=== PATIENT | female | born 2000 | race American Indian/Alaskan Native ===

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

== ENCOUNTER 2022-02-28 19:23 | Inpatient (IN) | payer BC, OTHER ==
[~2022-02-28] VITALS: Ht 162.6 cm; Wt 96.6 kg
[~2022-02-28 19:23] MED LIST changes: +CYCLOBENZAPRINE10 MG PO; +ONDANSETRON ODT8 MG PO
--- NOTE | 2022-03-01 08:11 | PR ---
[facility] [address] [facility] [place], [place] [address] Signed Progress Notes IP Datetime Report Generated by PRIMO: 03/01/2022 08:11 PROGRESS NOTES: [id number] Impression: Reassuring Heart Rate Other Impressions: minimal progress Procedures: Intrauterine Pressure Catheter; Sterile Vag Exam VITAL SIGNS: [id number] Vital Signs: Reviewed; Within Normal Limits EXAM: [id number] Dilatation: 4.0 Effacement: 95 Station: -2 Contractions: q 3 to 4 min MEMBRANES: [id number] Comments: Minimal progress. Suspect inadquate contractions. Will place IUPC and augment as needed. FETUS A: [id number] FHR Baseline: 140 Variability: Moderate 6-25bpm Accelerations: 10X10 Decelerations: None FHR Category: Category I Presentation: Vertex Comments on Fetus A: No evidence of metabolic acidosis FETUS B: [id number] Signing Physician: Emily Swain MD Copies: ~ *Electronically Signed* 03/01/22810 EMILY SWAIN MD PATIENT NAME: ANNALEE JAMES DANIEL PROGRESS NOTE DATE OF : 02 PHYSICIAN: EMILY SWAIN MD RPT #: [id number] REPORT IS CONFIDENTIAL AND NOT TO BE RELEASED WITHOUT AUTHORIZATION
--- NOTE | 2022-03-02 07:57 | PR ---
[facility] [address] [facility] [place] [address] Signed PP Progress Notes Datetime Report Generated by CPN: 03/02/2022 07:57 SUBJECTIVE: [id number] Pain: Within Normal Limits Vital Signs: [id number] Vital Signs: Reviewed; Within Normal Limits Cardiovascular: Not Done Respiratory: Not Done Abdomen/Uterus: Abnormal Lochia: Normal Vulva/Perineum: Not Done Breasts: Not Done CVA Tenderness: Not Done Extremities: Normal Incision: Not Applicable Progress: Normal Exam Comments: Fundus firm, NT @ U-2. H/H 10.1/31.4, WBC 16.8, plat 219k IMPRESSION/PLAN/PROCEDURES: [id number] Impression: Normal Progression Plan: Continue Present Management Procedures: None Progress Notes: Doing well. Probable D/C tomorrow if continues to do well. Signing Physician: Emily Swain MD Copies: ~ *Electronically Signed* 03/02/22 0757 EMILY SWAIN MD PATIENT NAME: ANNALEE JAMES PROGRESS NOTE DATE OF : 02 PHYSICIAN: EMILY SWAIN MD RPT #: [id number] REPORT IS CONFIDENTIAL AND NOT TO BE RELEASED WITHOUT AUTHORIZATION
--- NOTE | 2022-03-03 08:37 | PR ---
[facility] [address] [facility] [place] [address] Signed PP Progress Notes Datetime Report Generated by CPN: 03/03/2022 08:37 SUBJECTIVE: [id number] Pain: Within Normal Limits Vital Signs: [id number] Vital Signs: Reviewed; Within Normal Limits Cardiovascular: Not Done Respiratory: Not Done Abdomen/Uterus: Abnormal Lochia: Normal Vulva/Perineum: Not Done Breasts: Not Done CVA Tenderness: Not Done Extremities: Normal Incision: Not Applicable Progress: Normal Exam Comments: Fundus firm, NT @ U-2 IMPRESSION/PLAN/PROCEDURES: [id number] Impression: Normal Progression Plan: Discharge Procedures: None Progress Notes: Doing well. She is ready for D/C. Signing Physician: Emily Swain MD Copies: ~ *Electronically Signed* 03/03/22 0837 EMILY SWAIN MD PATIENT NAME: ANNALEE JAMES PROGRESS NOTE DATE OF : 02 PHYSICIAN: EMILY SWAIN MD RPT #: [id number] REPORT IS CONFIDENTIAL AND NOT TO BE RELEASED WITHOUT AUTHORIZATION
== END 2022-03-03 11:55 | disposition home or self-care (01) | DRG 807 ==
LOC: FBCO 19:23 → FBC 20:14
PROVIDERS: ADMIT Obstetrics & Gynecology; ATTEND Obstetrics & Gynecology
PROC: 10E0XZZ Delivery of Products of Conception, External Approach (ICD-10-PCS; principal; 2022-03-01)
PROC: 0KQM0ZZ Repair Perineum Muscle, Open Approach (ICD-10-PCS; 2022-03-01)
PROC: 10907ZC Drainage of Amniotic Fluid, Therapeutic from Products of Conception, Via Natural or Artificial Opening (ICD-10-PCS; 2022-03-01)
PROC: 00HU33Z Insertion of Infusion Device into Spinal Canal, Percutaneous Approach (ICD-10-PCS; 2022-03-01)
PROC: 3E0R3BZ Introduction of Anesthetic Agent into Spinal Canal, Percutaneous Approach (ICD-10-PCS; 2022-03-01)
PROC: 10H07YZ Insertion of Other Device into Products of Conception, Via Natural or Artificial Opening (ICD-10-PCS; 2022-03-01)
DX: O70.1 Second degree perineal laceration during delivery (principal); Z37.0 Single live birth; Z3A.39 39 weeks gestation of pregnancy; Z67.10 Type A blood, Rh positive; Z20.822 Contact with and (suspected) exposure to COVID-19
CPT/HCPCS: 36415; 85027; 86850; 86900; 86901; 87502; A9270; C9803; G0378; J2001; J2270; J2550; J2590; J2795; J3010; J7121; U0003

== ENCOUNTER 2023-10-07 05:17 | Emergency (ER) | payer BC, OTHER ==
[~2023-10-07] VITALS: Ht 154.9 cm; Wt 93.0 kg
[~2023-10-07 05:17] MED LIST changes: +REGLAN10 MG PO; +SERTRALINE HCL100 MG PO
[2023-10-07] MEDS ORDERED: RETIN-A20 G1 (05:28)
[2023-10-07 06:30] VITALS: BP 115/79
[2023-10-07] MEDS ORDERED: TRAMADOL HCL50 MG PO (06:37)
[2023-10-07] MEDS ORDERED: AMOX TR-K CLV1 EAC1 PO (06:37)
== END 2023-10-07 06:54 | disposition home or self-care (01) ==
LOC: ED 05:17
DX: S02.2XXA Fracture of nasal bones, initial encounter for closed fracture (principal); S01.01XA Laceration without foreign body of scalp, initial encounter; S50.11XA Contusion of right forearm, initial encounter; S60.512A Abrasion of left hand, initial encounter; S60.511A Abrasion of right hand, initial encounter; Z91.013 Allergy to seafood; Z79.899 Other long term (current) drug therapy; Y04.2XXA Assault by strike against or bumped into by another person, initial encounter
CPT/HCPCS: 70450; 70486; 73130; 99284-25; A9270

== ENCOUNTER 2024-08-13 21:21 | Emergency (ER) | payer BC, OTHER ==
[~2024-08-13] VITALS: Ht 162.6 cm; Wt 96.0 kg
[~2024-08-13 21:21] MED LIST changes: +AMOX TR-K CLV1 EAC1 PO; +RETIN-A20 G1; +TRAMADOL HCL50 MG PO
[2024-08-13] MEDS ORDERED: MORPHINE SULFATE 4 MG/ML VIAL IV ONE (22:45)
[2024-08-13] MEDS ORDERED: SODIUM CHLORIDE 0.9% 1,000 ML IV ONE (22:45)
[2024-08-13] MEDS ORDERED: ondansetron HCL 4 MG/2 ML VIAL IV ONE (22:45)
[2024-08-13 22:46] LABS: BILIRUBIN, URINE NEGATIVE (negative); BLOOD/HGB, URINE NEGATIVE (Negative); KETONE, URINE NEGATIVE (Negative); LEUK ESTERASE, URINE NEGATIVE (negative); NITRITE, URINE NEGATIVE (negative); PH, URINE 5.5 (5-7)
[2024-08-13 22:57] LABS: BASOPHILS 0.9 % (0-2); EOSINOPHILS 1.3 % (0-6); HEMATOCRIT 37.3 % (35.0-50.0); HEMOGLOBIN 11.9 g/dL (12.0-18.0); LYMPHOCYTES 21.4 % (24-44); MCH 25.7 (27-36); MCHC 31.9 g/dl (30-36); MCV 80.7 fl (81-99); MONOCYTES 7.8 % (0-12); NEUTROPHILS 68.6 % (39-80); PLATELET COUNT 380 K/uL (140-440); RBC 4.62 M/ul (4.3-5.7); RDW 16.2 (10.5-15.0)
[2024-08-13 23:10] LABS: ALBUMIN 3.5 g/dL (3.4-5.0); ALBUMIN/GLOBULIN RATIO 0.88 (1.1-2.4); ANION GAP 13.7 (7-21); BILIRUBIN, TOTAL 0.2 ng/dL (0.2-1.0); BUN/CREATININE RATIO 12.04 (6.0-28.6); CALCIUM 8.9 mg/dL (8.5-10.1); CREATININE, SERUM 0.83 mg/dL (0.55-1.02); POTASSIUM 3.7 mmol/L (3.5-5.1); PROTEIN, TOTAL 7.5 g/dL (6.4-8.2)
[2024-08-14] MEDS ORDERED: HYDROCODON-ACE1 EA10 PO (00:05)
[2024-08-14] MEDS ORDERED: ONDANSETRON 4 MG HOME.PACK SL ONE (00:15)
[2024-08-14] MEDS ORDERED: HYDROCODONE BIT/ACETAMINOPHEN 5/325 MG 1 TAB HOME.PACK PO ONE (00:15)
[2024-08-14 00:26] VITALS: BP 118/72
== END 2024-08-14 00:28 | disposition home or self-care (01) ==
LOC: ED 21:21
PROVIDERS: Family Medicine
DX: K80.50 Calculus of bile duct without cholangitis or cholecystitis without obstruction (principal); Z91.013 Allergy to seafood; Z79.899 Other long term (current) drug therapy
CPT/HCPCS: 36415; 76705; 80053; 81003; 83690; 84703; 85025; 96374; 96375; 99284-25; A9270; J2270; J2405; J7030

== ENCOUNTER 2024-11-03 16:50 | Emergency (ER) | payer BC, OTHER ==
[~2024-11-03] VITALS: Ht 162.6 cm; Wt 94.3 kg
[~2024-11-03 16:50] MED LIST changes: +HYDROCODON-ACE1 EA10 PO
[2024-11-03 18:26] LABS: BILIRUBIN, URINE NEGATIVE (negative); BLOOD/HGB, URINE NEGATIVE (Negative); KETONE, URINE NEGATIVE (Negative); LEUK ESTERASE, URINE NEGATIVE (negative); NITRITE, URINE NEGATIVE (negative)
[2024-11-03 18:39] LABS: CRYSTALS, URINE NONE SEEN (0-1+); EPITHELIAL CELLS, URINE SQUAMOUS 2+ /lpf (0-1+)
[2024-11-03 18:40] LABS: BACTERIA, URINE 1+ /hpf (negative); CASTS, URINE NONE SEEN \\lpf; COLLECTION TYPE, URINE CLEAN CATCH; REFLEX CULTURE, URINE No (No)
[2024-11-03 19:50] LABS: BASOPHILS 0.5 % (0-2); EOSINOPHILS 1.9 % (0-6); HEMATOCRIT 37.5 % (35.0-50.0); HEMOGLOBIN 11.9 g/dL (12.0-18.0); LYMPHOCYTES 17.5 % (24-44); MCH 25.8 (27-36); MCHC 31.8 g/dl (30-36); MCV 81.1 fl (81-99); MONOCYTES 9.5 % (0-12); NEUTROPHILS 70.6 % (39-80); PLATELET COUNT 295 K/uL (140-440); RBC 4.62 M/ul (4.3-5.7); RDW 15.9 (10.5-15.0)
[2024-11-03 20:09] LABS: ALBUMIN 3.5 g/dL (3.4-5.0); ANION GAP 12.8 (7-21); BILIRUBIN, TOTAL 0.1 ng/dL (0.2-1.0); BUN/CREATININE RATIO 11.42 (6.0-28.6); CREATININE, SERUM 0.7 mg/dL (0.55-1.02); POTASSIUM 3.8 mmol/L (3.5-5.1)
[2024-11-03] MEDS ORDERED: ondansetron HCL 4 MG/2 ML VIAL IV ONE (21:45)
[2024-11-03] MEDS ORDERED: HYDROCODONE BIT/ACETAMINOPHEN 5/325 MG 1 TAB HOME.PACK PO ONE (22:30)
[2024-11-03 22:41] VITALS: BP 129/76
== END 2024-11-03 22:42 | disposition home or self-care (01) ==
LOC: ED 16:50
PROVIDERS: Emergency Medicine
DX: S39.81XA Other specified injuries of abdomen, initial encounter (principal); W22.8XXA Striking against or struck by other objects, initial encounter; Z91.013 Allergy to seafood
CPT/HCPCS: 36415; 74177; 80053; 81001; 84703; 85025; 99284-25; A9270; J2405

== ENCOUNTER 2025-03-06 18:01 | Emergency (ER) | payer OTHER ==
[~2025-03-06] VITALS: Ht 162.6 cm; Wt 85.0 kg
[2025-03-06 21:42] VITALS: BP 131/83
== END 2025-03-06 21:43 | disposition home or self-care (01) ==
LOC: ED 18:01
DX: N63.0 Unspecified lump in unspecified breast (principal); N64.4 Mastodynia; Z91.013 Allergy to seafood; Z88.8 Allergy status to other drugs, medicaments and biological substances
CPT/HCPCS: 76642; 99283

== ENCOUNTER 2025-03-19 06:00 | Day surgery (SDC) | payer OTHER ==
[2025-03-05 15:27] VITALS: BP 111/59
[~2025-03-19] VITALS: Ht 162.6 cm; Wt 85.9 kg
--- NOTE | ~2025-03-19 | OR ---
[facility] [address] [place], [place] [address] Draft DATE OF OPERATION: 03/19/2025 SURGEON: Anjel Haas MD PREOPERATIVE DIAGNOSIS: Inferior turbinate hypertrophy and chronic tonsillitis. POSTOPERATIVE DIAGNOSIS: Inferior turbinate hypertrophy and chronic tonsillitis. PROCEDURE: Tonsillectomy, cautery bilateral inferior turbinates. ANESTHESIA: General orotracheal; DOUBLE BACKER, Diallo. PREOPERATIVE HISTORY: Annalee is a 24-year-old young lady with chronic nasal obstruction due to the inferior turbinate hypertrophy. She has been unresponsive to appropriate medications. She has also had chronic tonsillitis, chronic sore throats, tonsillar hypertrophy, tonsillithiasis, taken to the operating room for the above-mentioned procedures. PROCEDURE AND FINDINGS: After informed consent, the patient was taken to the operating room, placed in the supine position where general orotracheal anesthesia was induced. The patient and procedure were verified. The patient was repositioned. The patient received preoperative intranasal oxymetazoline and intravenous Ancef. McIvor mouth gag was placed into suspension. Headlight exam of the pharynx showed markedly hypertrophic obstructive cryptic tonsilolithitic tonsils. The left tonsil was grasped with a tenaculum, retracted medially and removed from its fossa with mucosal sparing incision with Coblation. Field was dry after the procedure, same procedure on the right tonsil. Tonsils were sent to pathology. Mouth gag was released for several minutes. Reinspection showed no bleeding points. The pharynx was suctioned clear of blood and secretions. Mouth gag was removed. The patient was repositioned. Intranasal exam with the headlight and speculum showed good decongestion of the inferior turbinates. The left inferior turbinate was then approached, cauterized with a long handle needle point cautery. Multiple transmucosal passes on the medial and inferior surface of the inferior turbinate starting anteriorly extending all the way back posteriorly. Excellent shrinkage of the turbinate was PATIENT NAME: ANNALEE JAMES OPERATIVE REPORT DATE OF : 02 REPORT #: [id number] PHYSICIAN: ANJEL HAAS MD PCP: MARK SEVILLA [facility] REPORT IS CONFIDENTIAL AND NOT TO BE RELEASED WITHOUT AUTHORIZATION [facility] [address] [place], [place] [address] Draft obtained. Hemostasis verified. The same procedure on the right inferior turbinate. Packing was then placed. Trimmed Merocel one piece each side equal amount coated with Neosporin, tied anteriorly over a pad. The pharynx was suctioned clear of blood secretions. The patient was then awakened, extubated, transported to recovery room in good condition. No complications. BLOOD LOSS: Minimal. SPECIMEN: To pathology. DRAINS: None. PACKING: One piece of Merocel, each nostril. Anjel Haas MD GC/AMIRAL /[id number] Copies: ~ PATIENT NAME: ANNALEE JAMES OPERATIVE REPORT DATE OF : 02 REPORT #: [id number] PHYSICIAN: ANJEL HAAS MD PCP: MARK SEVILLA [employer] INTERN-BC REPORT IS CONFIDENTIAL AND NOT TO BE RELEASED WITHOUT AUTHORIZATION
[~2025-03-19 06:00] MED LIST changes: +LACTATED RINGER'S 1,000 ML IV SCH
[2025-03-19 06:17] VITALS: BP 114/67
[2025-03-19] MEDS ORDERED: OXYMETAZOLINE HCL 30 ML BTL NAS SCH (06:30)
[2025-03-19] MEDS ORDERED: LIDOCAINE 1% W/ EPI 1:100,000 20 ML MDV ONE (06:50)
[2025-03-19] MEDS ORDERED: IBLOOD GLUCOSE TEST STRIP 1 EA TEST VI PRN ×3 (07:00→08:45)
[2025-03-19] MEDS ORDERED: LIDOCAINE HCL 1% 5 ML SDV INJ ONE (07:00)
[2025-03-19] MEDS ORDERED: CEFAZOLIN SODIUM 2 GM/20 ML SYR IV SCH (07:00)
[2025-03-19] MEDS ORDERED: fentaNYL citrate 100 MCG/2 ML VIAL ONE (07:23)
[2025-03-19] MEDS ORDERED: MIDAZOLAM HCL 2 MG/2 ML VIAL ONE ×2 (07:23→08:42)
[2025-03-19] MEDS ORDERED: DEXAMETHASONE SOD PHOS 4 MG/ML VIAL ONE (07:24)
[2025-03-19] MEDS ORDERED: droPERidol 5 MG/2 ML VIAL ONE (07:24)
[2025-03-19] MEDS ORDERED: LIDOCAINE HCL 2% 5 ML SDV ONE (07:24)
[2025-03-19] MEDS ORDERED: ROCURONIUM BROMIDE 50 MG/5 ML SYR ONE ×2 (07:24→08:28)
[2025-03-19] MEDS ORDERED: ondansetron HCL 4 MG/2 ML VIAL ONE (07:24)
[2025-03-19] MEDS ORDERED: SCOPOLAMINE 1 MG/3 DAYS PATCH 1 EACH TDSY ONE (07:24)
[2025-03-19] MEDS ORDERED: dexmedeTOMIDine HCl 200 MCG/2 ML VIAL ONE (07:24)
[2025-03-19] MEDS ORDERED: ACETAMINOPHEN 1,000 MG/100 ML VIAL ONE (07:24)
[2025-03-19] MEDS ORDERED: propofoL 200 MG/20 ML VIAL ONE (07:24)
[2025-03-19] MEDS ORDERED: SUGAMMADEX SODIUM 200 MG/2 ML ML ONE (08:29)
[2025-03-19] MEDS ORDERED: KETOROLAC TROMETHAMINE 30 MG/ML VIAL IV PRN (08:45)
[2025-03-19] MEDS ORDERED: ondansetron HCL 4 MG/2 ML VIAL IV PRN (08:45)
[2025-03-19] MEDS ORDERED: fentaNYL citrate 50 MCG/ML SDV IV PRN (08:45)
[2025-03-19] MEDS ORDERED: NALOXONE HCL 0.4 MG SYR IV PRN (08:45)
--- NOTE | 2025-03-19 08:53 | NUR ---
03/19/25 0853 Brinda Sierra 0844 PT TO PACU AWAKE VERY TEARFULL, REPORTS MILD PAIN TO HER THROAT DENIES NAUSEA.
[2025-03-19 09:20] VITALS: BP 97/53
--- NOTE | 2025-03-19 09:20 | NUR ---
PT ARRIVES TO DS DEPT FROM PACU VIA STRETCHER. PT IS DROWSY AND OPENS EYES TO VERBAL STIMULI. PT EYES CLOSED, RESPIRATIONS EVEN AND UNLABORED, O2 >90% VIA CONT PULSE OX. REPORT RECEIVED FROM CAMMIE WATLERS. CALL LIGHT WITHIN REACH. PT PHONE AND GLASSES AT BEDSIDE. PT REPORTS NO FURTHER NEEDS OR QUESTIONS AT THIS TIME.
--- NOTE | 2025-03-19 09:45 | NUR ---
PT STATES NEED TO URINE VOID. PT SITS AT BEDSIDE AND STATES NO ONSET OF DIZZINESS OR NAUSEA. PT STANDS AT BEDSIDE, GAIT IS STEADY. THIS RN STANDBY ASSIST TO RESTROOM FOR UNMEASURABLE URINE VOID. PT BACK IN BED AND EATING APPLESAUCE AND DRINKING ICE WATER AT THIS TIME. MAYTE IS NOW AT BEDSIDE. CALL LIGHT WITHIN REACH. PT STATES NO FURTHER NEEDS OR QUESTIONS AT THIS TIME.
--- NOTE | 2025-03-19 10:20 | NUR ---
IN PT ROOM FOR VS AND ASSESSMENT. NO ACUTE CHANGES FROM PREVIOUS ASSESSMENT. PT STATES SHE IS READY TO GO HOME. PT TO RESTROOM FOR UNMEASURABLE URINE VOID AT THIS TIME. PT NOW GETTING DRESSED IN ROOM. CALL LIGHT WITHIN REACH. MAYTE AT BEDSIDE.
[2025-03-19] MEDS ORDERED: ACETA/HYDROCODONE 325/7.5 15 ML BTL PO PRN (10:30)
--- NOTE | 2025-03-19 10:35 | NUR ---
THIS RN IN ROOM FOR DC EDUCATION AT THIS TIME. PT STATES VERBAL UNDERSTANDING AND NO FURTHER QUESTIONS AT THIS TIME. THIS RN PERFORMS DEMONSTRATION OF NASAL DRIP PAD REMOVAL/PLACEMENT. PT STATES VERBAL UNDERSTANDING AT THIS TIME. BAG OF SUPPLIES NEEDED IN PT POSSESSION WITH ALL OTHER PT BELONGINGS. PT OFF OF UNIT VIA WC TO PASSENGER SIDE OF GRANDMOTHER'S VEHICLE. PT STATES NO FURTHER NEEDS AT THIS TIME. PRESCRIPTION HANDWRITTEN PROVIDED.
[2025-03-19 10:39] VITALS: BP 117/62
[2025-03-19] MEDS ORDERED: SEVOFLURANE 250 ML BTL INH ONE (15:38)
--- NOTE | 2025-03-21 07:59 | PATH ---
[facility] [address] [facility] [place] [address] Signed SPECIMEN(S): A BILATERAL TONSILS, GROSS ONLY SPECIMEN SOURCE: A. BILATERAL TONSILS, GROSS ONLY CLINICAL HISTORY: Nasal obstruction, chronic tonsillitis, tonsillectomy FINAL PATHOLOGIC DIAGNOSIS: Tonsils, bilateral, tonsillectomies - Tonsillar tissue as grossly described; gross diagnosis only BRP MICROSCOPIC EXAMINATION: Histologic sections of all submitted blocks are examined by light microscopy. These findings, together with the gross examination, support the pathologic diagnosis. GROSS DESCRIPTION: The specimen, labeled and designated "Juliocesar, bilateral tonsils, gross only," is received in formalin and consists of two red-brown to pink-adkins undesignated tonsils (3.6 x 2.1 x 1.9 cm, and 3.6 x 2.1 x 1.8 cm). One of the tonsils is arbitrarily inked blue. Both tonsils are serially sectioned to reveal red-brown to pink-adkins convoluted cut surfaces with yellow-adkins friable material within the tonsillar crypts. The specimen is submitted for gross examination only. VB (under the direct supervision of a pathologist) The Gross Description was prepared using a voice recognition system. The report was reviewed for accuracy; however, sound-alike word errors, addition and/or deletions may occur. If there is any question about this report, please contact Client Services. ADDITIONAL NOTES: Immunohistochemical and/or in situ hybridization studies if performed in this case included appropriate positive controls that reacted as expected. This test was developed and its performance characteristics determined by [facility]. It has not been cleared or approved by the U.S. Food and Drug Administration. The FDA has determined that such clearance or approval is not necessary. This test is used for clinical purposes. It should not be regarded as investigational or for research. [facility] is certified under the PATIENT NAME: ANNALEE JAMES PATHOLOGY DATE OF : 02 REPORT #: [id number] PHYSICIAN: KEVIN PATHOLOGY PCP: MARK SEVILLA NATURAL SCIENCES MANAGER-BC REPORT IS CONFIDENTIAL AND NOT TO BE RELEASED WITHOUT AUTHORIZATION [facility] [address] [facility] [place] [address] Signed Clinical Laboratory Improvement Amendments of 1988 (CLIA) as qualified to perform high complexity clinical laboratory testing. PERFORMING LABORATORY: Technical component was performed by [facility], [address] [place] [id number] (CLIA# [id number]). Professional interpretation was performed by [facility] - [address] [address] (CLIA#: [id number]). Diagnostician: Mendel Oconnor MD Pathologist Electronically Signed 03/21/2025 Copies: ~ PATIENT NAME: ANNALEE JAMES PATHOLOGY DATE OF : 02 REPORT #: [id number] PHYSICIAN: KEVIN PATHOLOGY PCP: MARK SEVILLA- REPORT IS CONFIDENTIAL AND NOT TO BE RELEASED WITHOUT AUTHORIZATION
== END 2025-03-19 10:50 | disposition home or self-care (01) ==
LOC: OPS 06:00 → DS 06:00 → OPS 07:30 → DS 03-26 10:30
PROVIDERS: ATTEND Otolaryngology
PROC: 0CBPXZZ Excision of Tonsils, External Approach (ICD-10-PCS; principal; 2025-03-19 07:30)
PROC: 09BL0ZZ Excision of Nasal Turbinate, Open Approach (ICD-10-PCS; 2025-03-19 07:30)
DX: J34.3 Hypertrophy of nasal turbinates (principal); J35.01 Chronic tonsillitis; J34.89 Other specified disorders of nose and nasal sinuses; Z79.899 Other long term (current) drug therapy
CPT/HCPCS: 00160; 84703; J0131; J0690; J1100; J1790; J1885; J2003; J2250; J2405; J2704; J3010; J3490; J7121

== ENCOUNTER 2025-03-21 13:06 | Emergency (ER) | payer OTHER ==
[~2025-03-21] VITALS: Ht 162.6 cm; Wt 85.0 kg
[~2025-03-21 13:06] MED LIST changes: -LACTATED RINGER'S 1,000 ML IV SCH
[2025-03-21] MEDS ORDERED: HYDROCODONE-AC473 M1 PO (13:59)
[2025-03-21] MEDS ORDERED: SODIUM CHLORIDE 0.9% 1,000 ML IV ONE (14:00)
[2025-03-21] MEDS ORDERED: DEXAMETHASONE SOD PHOS 10 MG/ML VIAL IV ONE (14:15)
[2025-03-21] MEDS ORDERED: ondansetron HCL 4 MG/2 ML VIAL IV ONE (14:15)
[2025-03-21 14:25] LABS: BASOPHILS 0.6 % (0.1-1.2); EOSINOPHILS 0.4 % (0.7-5.8); HEMATOCRIT 37.6 % (34.1-44.9); HEMOGLOBIN 11.6 g/dL (11.2-15.7); LYMPHOCYTES 14.1 % (19.3-51.7); MCH 25.9 PG (25.6-32.2); MCHC 30.9 g/dL (32.2-35.5); MCV 83.9 fL (79.4-94.8); MONOCYTES 9.1 % (4.7-12.5); NEUTROPHILS 75.5 % (34.0-71.1); PLATELET COUNT 323 K/uL (182-369); RBC 4.48 M/uL (3.93-5.22)
[2025-03-21 14:42] LABS: ALBUMIN 3.6 g/dL (3.4-5.0); BILIRUBIN, TOTAL 0.2 mg/dL (0.2-1.0); BUN/CREATININE RATIO 9.45 (6.0-28.6); CALCIUM 8.6 mg/dL (8.5-10.1); CREATININE, SERUM 0.74 mg/dL (0.55-1.02); PROTEIN, TOTAL 7.2 g/dL (6.4-8.2)
[2025-03-21 15:45] VITALS: BP 120/73
== END 2025-03-21 15:45 | disposition home or self-care (01) ==
LOC: ED 13:06
PROVIDERS: Emergency Medicine
DX: G89.18 Other acute postprocedural pain (principal); Z90.89 Acquired absence of other organs; Z91.013 Allergy to seafood; Z88.8 Allergy status to other drugs, medicaments and biological substances
CPT/HCPCS: 36415; 80053; 85025; 96374; 96375; 99283-25; J1100; J2405; J7030

== ENCOUNTER 2025-03-25 12:54 | Emergency (ER) | payer OTHER ==
[~2025-03-25] VITALS: Ht 162.6 cm; Wt 83.6 kg
[~2025-03-25 12:54] MED LIST changes: +HYDROCODONE-AC473 M1 PO
[2025-03-25] MEDS ORDERED: SODIUM CHLORIDE 0.9% 1,000 ML IV ONE (13:30)
[2025-03-25] MEDS ORDERED: HYDROmorphone HCL 1 MG/ML SYR IV ONE (13:30)
[2025-03-25] MEDS ORDERED: ondansetron HCL 4 MG/2 ML VIAL IV PRN (13:30)
[2025-03-25] MEDS ORDERED: HYDROCODON-ACE1 EA10 PO (14:58)
[2025-03-25 15:39] VITALS: BP 110/71
== END 2025-03-25 15:20 | disposition home or self-care (01) ==
LOC: ED 12:54
DX: G89.18 Other acute postprocedural pain (principal); R07.0 Pain in throat; Z91.013 Allergy to seafood; Z88.8 Allergy status to other drugs, medicaments and biological substances; Z90.89 Acquired absence of other organs
CPT/HCPCS: 96374; 96375; 99283-25; J1171; J2405; J7030

== ENCOUNTER 2025-07-05 12:08 | Emergency (ER) | payer OTHER ==
[~2025-07-05] VITALS: Ht 162.6 cm; Wt 86.0 kg
[2025-07-05 12:53] LABS: BLOOD/HGB, URINE LARGE (Negative); KETONE, URINE NEGATIVE (Negative); LEUK ESTERASE, URINE SMALL (negative); NITRITE, URINE NEGATIVE (negative)
[2025-07-05 13:01] LABS: BASOPHILS 0.7 % (0.1-1.2); EOSINOPHILS 0.3 % (0.7-5.8); LYMPHOCYTES 18.4 % (19.3-51.7); MCH 25.6 PG (25.6-32.2); MCHC 30.7 g/dL (32.2-35.5); MCV 83.3 fL (79.4-94.8); MONOCYTES 8.1 % (4.7-12.5); NEUTROPHILS 72.2 % (34.0-71.1); RBC 4.50 M/uL (3.93-5.22)
[2025-07-05 13:05] LABS: BACTERIA, URINE RARE /hpf (negative); CASTS, URINE NONE SEEN \\lpf; CRYSTALS, URINE NONE SEEN (0-1+); EPITHELIAL CELLS, URINE SQUAMOUS 3+ /lpf (0-1+); REFLEX CULTURE, URINE No (No)
[2025-07-05 13:17] LABS: ALT (SGPT) 14.0 U/L (14-59); AST (SGOT) 7.0 U/L (15-37); GLOMERULAR FILTRATION RATE,EST 126.0 mL/min (>60); PROTEIN, TOTAL 6.9 g/dL (6.4-8.2); UREA NITROGEN 10.0 mg/dL (7-18)
[2025-07-05 13:56] VITALS: BP 115/69
== END 2025-07-05 13:57 | disposition home or self-care (01) ==
LOC: ED 12:08
PROVIDERS: Emergency Medicine
DX: N93.9 Abnormal uterine and vaginal bleeding, unspecified (principal); Z91.013 Allergy to seafood; Z88.8 Allergy status to other drugs, medicaments and biological substances
CPT/HCPCS: 36415; 80053; 81001; 84703; 85025; 99284